=== PATIENT | male | born 1975 | race Caucasian/White ===

== ENCOUNTER 2024-10-29 05:23 | Day surgery (SDC) | payer OTHER ==
[2024-10-29] MEDS ORDERED: LIDOCAINE HCL 1%, 10 MG/ML (20ML VIAL) ONE ×2 (07:31→07:39)
[2024-10-29] MEDS ORDERED: MIDAZOLAM HCL 2 MG/2 ML SINGLE DOSE VIAL ONE (07:43)
[2024-10-29] MEDS ORDERED: SUCCINYLCHOLINE CHLORIDE 200 MG/10 ML SYRINGE ONE (07:43)
[2024-10-29] MEDS ORDERED: PROPOFOL 20 ML ONE (07:43)
[2024-10-29] MEDS ORDERED: ONDANSETRON 4 MG/2 ML VIAL ONE (07:44)
[2024-10-29] MEDS ORDERED: ceFAZolin SODIUM 1 GM VIAL ONE (07:44)
[2024-10-29] MEDS ORDERED: DEXAMETHASONE SOD PHOSPHATE 4 MG/1 ML VIAL ONE (07:44)
[2024-10-29] MEDS: ceFAZolin 2 GRAM PREMIX BAG IVPB ONE (08:21)
[2024-10-29] MEDS ORDERED: ROCURONIUM BROMIDE 50 MG/5 ML SYRINGE ONE (08:38)
[2024-10-29] MEDS: LIDOCAINE HCL 1%, 10 MG/ML (20ML VIAL) NR ONE (08:45)
[2024-10-29] MEDS ORDERED: KETOROLAC TROMETHAMINE 30 MG/1 ML VIAL ONE (09:31)
[2024-10-29] MEDS ORDERED: SUGAMMADEX SODIUM 200 MG/2 ML VIAL ONE (09:32)
[2024-10-29] MEDS ORDERED: ONDANSETRON 4 MG/2 ML VIAL IVPUSH PRN (10:41)
[2024-10-29 11:26] VITALS: RESP 20
[2024-10-29] MEDS ORDERED: oxyCODONE HCL 5 MG TABLET ONE (11:28)
[2024-10-29] MEDS: oxyCODONE HCL 5 MG TABLET PO PRN (11:33)
[2024-10-29 15:33] VITALS: BP 124/79; PULSE 90; TEMP 98.2
== END 2024-10-29 15:34 | disposition home or self-care (01) ==
LOC: JASUSAT 05:23
PROVIDERS: ATTEND Orthopaedic Surgery Orthopaedic Surgery of the Spine
PROC: 0QU03JZ Supplement Lumbar Vertebra with Synthetic Substitute, Percutaneous Approach (ICD-10-PCS; 2024-10-29)
PROC: 0QU03JZ Supplement Lumbar Vertebra with Synthetic Substitute, Percutaneous Approach (ICD-10-PCS; principal; 2024-10-29 08:00)
DX: S32.040A Wedge compression fracture of fourth lumbar vertebra, initial encounter for closed fracture (principal); X58.XXXA Exposure to other specified factors, initial encounter; Y92.9 Unspecified place or not applicable; Y93.9 Activity, unspecified
CPT/HCPCS: 76000-TC-FY; 94760